=== PATIENT | male | born 1950 | race African-American/Black ===

== ENCOUNTER 2022-03-02 08:03 | Day surgery (SDC) | payer BC ==
[2022-03-01 11:30] VITALS: BMI 27.2
[~2022-03-02 08:03] MED LIST: EPINEPHrine 0.3 MG in Ophthalmic Irrigation Solution 500 ML IRR SCH
[2022-03-02] MEDS ORDERED: Phenylephrine 2.5% Ophth Soln 5 ML BOT ONE (08:21)
[2022-03-02] MEDS ORDERED: Cyclopentolate 1% Opth Drop 2 ML BOT ONE (08:21)
== END 2022-03-02 11:55 | disposition home or self-care (01) ==
LOC: SDC 08:03
PROVIDERS: ATTEND Ophthalmology Retina Specialist
PROC: 08T43ZZ Resection of Right Vitreous, Percutaneous Approach (ICD-10-PCS; principal; 2022-03-02)
PROC: 08PJ3JZ Removal of Synthetic Substitute from Right Lens, Percutaneous Approach (ICD-10-PCS; principal; 2022-03-02)
DX: H59.021 Cataract (lens) fragments in eye following cataract surgery, right eye (principal); H35.371 Puckering of macula, right eye; I10 Essential (primary) hypertension; E78.5 Hyperlipidemia, unspecified; Z79.899 Other long term (current) drug therapy
CPT/HCPCS: J0171